=== PATIENT | male | born 1970 | race Caucasian/White ===

== ENCOUNTER 2016-05-28 15:35 | Emergency (ER) | payer BC ==
[~2016-05-28] VITALS: Ht 190.5 cm; Wt 104.3 kg
[~2016-05-28 15:35] MED LIST: CYCLOBENZAPRINE10 MG ORAL; HYDROCODON-ACE1 EA16 ORAL; METHYLPREDNISOLO4 MG PO; NORCO 5-325 TA1 EACH ORAL; PAXIL10 MG ORAL
[2016-05-28] MEDS ORDERED: Morphine Sulfate 4mg/ml Inj IVP ONE ×2 (16:15→17:45)
[2016-05-28 17:04] LABS: BASOPHILS % (AUTO) 1.6 % (0.0-2.0); EOSINOPHILS % (AUTO) 1.3 % (0.0-3.0); LYMPHOCYTES % (AUTO) 30.5 % (20.0-45.0); MEAN CORPUSCULAR HEMOGLOBIN 29.8 PG (27.0-31.0); MEAN CORPUSCULAR HGB CONC 32.5 G/DL (32.0-36.0); MEAN CORPUSCULAR VOLUME 92 FL (80-99); MEAN PLATELET VOLUME 7.9 FL (6.5-10.1); MONOCYTES % (AUTO) 7.5 % (1.0-10.0); NEUTROPHILS % (AUTO) 59.1 % (45.0-75.0); PLATELET COUNT 157 K/UL (150-450); RED BLOOD COUNT 3.89 M/UL (4.70-6.10); RED CELL DISTRIBUTION WIDTH 11.5 % (11.6-14.8); WHITE BLOOD COUNT 7.6 K/UL (4.8-10.8)
[2016-05-28 17:19] LABS: ALANINE AMINOTRANSFERASE 38 U/L (3-41); ALBUMIN/GLOBULIN RATIO 1.7 (1.0-2.7); ANION GAP 15 (5-15); ASPARTATE AMINO TRANSFERASE 27 U/L (5-40); CALCIUM 8.9 mg/dL (8.6-10.2); CARBON DIOXIDE 26 mEQ/L (20-30); CHLORIDE 98 mEQ/L (98-107); CREATININE 0.9 mg/dL (0.7-1.2); GLOMERULAR FILTRATION RATE > 60 mL/min (>60); HEMOLYSIS 11; POTASSIUM 3.9 mEQ/L (3.4-4.9); SODIUM 139 mEQ/L (135-145); TOTAL PROTEIN 6.1 g/dL (6.6-8.7); TROPONIN I < 0.30 ng/mL (<=0.30)
[2016-05-28 17:29] LABS: CKMB 1.7 ng/mL (< 6.7)
[2016-05-28 17:47] VITALS: BP 109/78
--- NOTE | 2016-05-28 17:51 | Emergency Room Report ---
History of Present Illness General Chief Complaint: Pain Source: Patient Present Illness HPI 45-year-old male presents ED for evaluation. Patient states 2 days ago he had surgery on his back for disc herniation. States starting yesterday he is having pain pain in his left calf. Patient is also having pain in his back. Surgeon sent him to ED to rule out DVT. Patient states pain is throbbing, 7/10 , nonradiating. Worse with walking. No other aggravating or relieving factors. Denies chest pain or shortness of breath. Denies any other associated symptoms Allergies: Coded Allergies: No Known Allergies (Verified , 02/02/06) Patient History Past Surgical History: other - back surgery Pertinent Family History: none Social History: Denies: alcohol use, drug use, smoking Immunizations: UTD Reviewed Nursing Documentation: PMH: Agreed, PSxH: Agreed Review of Systems All Other Systems: negative except mentioned in HPI Physical Exam Vital Signs Date Time Temp Pulse Resp B/P Pulse Ox O2 Delivery O2 Flow Rate FiO2 05/28/16 15:54 98.1 79 20 150/77 96 Room Air Sp02 EP Interpretation: reviewed, normal General Appearance: no apparent distress, alert, GCS 15, non-toxic Head: normocephalic Eyes: bilateral eye PERRL, bilateral eye normal inspection ENT: normal ENT inspection Neck: normal inspection Respiratory: chest non-tender, lungs clear, normal breath sounds, speaking full sentences Cardiovascular #1: regular rate, rhythm, no edema Gastrointestinal: normal bowel sounds, non tender, soft, non-distended, no guarding, no rebound Genitourinary: no CVA tenderness, vertebral tenderness - surgical site C/D/I Musculoskeletal: back normal, gait/station normal, normal range of motion, non- tender, calf tenderness - L calf Neurologic: alert, oriented x3, responsive, motor strength/tone normal, sensory intact, speech normal Psychiatric: normal inspection Skin: normal inspection Lymphatic: normal inspection Medical Decision Making Diagnostic Impression: Primary Impression: Lumbar disc disease with radiculopathy Additional Impression: Strain of calf muscle Qualified Codes: S86.812A - Strain of other muscle(s) and tendon(s) at lower leg level, left leg, initial encounter ER Course Hospital Course 45-year-old male present ED complaining of left calf pain and swelling. Recent back surgery Differential diagnoses include: DVT, cellulitis, contusion, abscess Clinical course Patient placed on stretcher after initial history and physical I ordered labs, pain medication and DVT ultrasound. Labs reviewed- electrolytes okay, hemoglobin/hematocrit stable Doppler ultrasound shows no evidence of DVT Likely Strain. Reassurance given. Discussed case with surgeon Dr. Hernandez Cotton and he agreed patient can be safely discharged to home I. I feel this is a highly complex case requiring extensive working including EKG/Rhythm strip, Xray/CT/US, Blood/urine lab work, repeat exams while in ED, and administration of strong opiates/narcotics for pain control, admission to hospital or close patient follow up. Diagnosis - lumbar disc disease with radiculopathy, strain of calf muscle Stable and discharged to home. Followup with PMD. Return to ED if symptoms recur or worsen Labs Test 05/28/16 16:48 White Blood Count 7.6 K/UL (4.8-10.8) Red Blood Count 3.89 M/UL (4.70-6.10) Hemoglobin 11.6 G/DL (14.2-18.0) Hematocrit 35.7 % (42.0-52.0) Mean Corpuscular Volume 92 FL (80-99) Mean Corpuscular Hemoglobin 29.8 PG (27.0-31.0) Mean Corpuscular Hemoglobin Concent 32.5 G/DL (32.0-36.0) Red Cell Distribution Width 11.5 % (11.6-14.8) Platelet Count 157 K/UL (150-450) Mean Platelet Volume 7.9 FL (6.5-10.1) Neutrophils (%) (Auto) 59.1 % (45.0-75.0) Lymphocytes (%) (Auto) 30.5 % (20.0-45.0) Monocytes (%) (Auto) 7.5 % (1.0-10.0) Eosinophils (%) (Auto) 1.3 % (0.0-3.0) Basophils (%) (Auto) 1.6 % (0.0-2.0) Prothrombin Time 10.0 SEC (9.30-11.50) Prothromb Time International Ratio 1.0 (0.9-1.1) Activated Partial Thromboplast Time 26 SEC (23-33) Sodium Level 139 mEQ/L (135-145) Potassium Level 3.9 mEQ/L (3.4-4.9) Chloride Level 98 mEQ/L (98-107) Carbon Dioxide Level 26 mEQ/L (20-30) Anion Gap 15 (5-15) Blood Urea Nitrogen 14 mg/dL (7-23) Creatinine 0.9 mg/dL (0.7-1.2) Estimat Glomerular Filtration Rate > 60 mL/min (>60) Glucose Level 95 mg/dL (74-106) Calcium Level 8.9 mg/dL (8.6-10.2) Total Bilirubin 0.2 mg/dL (0.0-1.2) Aspartate Amino Transf (AST/SGOT) 27 U/L (5-40) Alanine Aminotransferase (ALT/SGPT) 38 U/L (3-41) Alkaline Phosphatase 37 U/L (40-129) Total Creatine Kinase 261 U/L (38-174) Creatine Kinase MB 1.7 ng/mL (< 6.7) Creatine Kinase MB Relative Index 0.6 Troponin I < 0.30 ng/mL (<=0.30) Total Protein 6.1 g/dL (6.6-8.7) Albumin 3.9 g/dL (3.5-5.2) Globulin 2.2 g/dL Albumin/Globulin Ratio 1.7 (1.0-2.7) CT/MRI/US Diagnostic Results CT/MRI/US Diagnostic Results : Imaging Test Ordered: Doppler US Impression no DVT Last Vital Signs Date Time Temp Pulse Resp B/P Pulse Ox O2 Delivery O2 Flow Rate FiO2 05/28/16 15:54 98.1 79 20 150/77 96 Room Air Status: improved Disposition: HOME, SELF-CARE Condition: Stable Referrals: NON PHYSICIAN (PCP) MICHELE NERI M.D. May 28, 2016 17:51
[2016-05-28 18:25] VITALS: BP 109/78
--- NOTE | 2016-06-01 22:52 | Diagnostic Imaging Report ---
APPROVED REPORT CPT Code: 20650 Present Symptoms Lower Extremity Pain: Left Comments: Hx of spinal surgery LEFT LEG: Venous imaging reveals a patent deep venous system. There is no evidence of thrombus within the femoral, popliteal or tibial segments. The greater saphenous vein is also within normal limits. Doppler indicates normal spontaneous flow within these segments.
== END 2016-05-28 18:26 | disposition home or self-care (01) ==
LOC: EMR 16:00
DX: M51.16 Intervertebral disc disorders with radiculopathy, lumbar region (principal); S86.812A Strain of other muscle(s) and tendon(s) at lower leg level, left leg, initial encounter; X58.XXXA Exposure to other specified factors, initial encounter; Y92.9 Unspecified place or not applicable
CPT/HCPCS: 36415; 80053; 82550; 82553; 84484; 85025; 85610; 85730; 93970; 96374; 96375; 99284; J2270